=== PATIENT | female | born 1950 | race Caucasian/White ===

== ENCOUNTER → 2017-05-26 14:02 | Outpatient (CLI) | payer MEDICARE, OTHER, SELFPAY ==
[2017-05-30 20:06] LABS: Clam 0.16 kU/L (Class 0/I); Codfish <0.10 kU/L (Class 0); Corn 0.12 kU/L (Class 0/I); Egg, White 0.13 kU/L (Class 0/I); Milk (Cow) 0.27 kU/L (Class 0/I); Peanut <0.10 kU/L (Class 0); SCALLOP 0.19 kU/L (Class 0/I); Soybean <0.10 kU/L (Class 0); Walnut, (Food) <0.10 kU/L (Class 0); Wheat 0.22 kU/L (Class 0/I)
[2017-05-31 06:22] LABS: SESAME SEED 0.11 kU/L (Class 0/I)
== END ==
PROVIDERS: Family Provider Family Medicine; PCP Family Medicine; Visit Provider Otolaryngology
DX: T78.40XA Allergy, unspecified, initial encounter (principal)
CPT/HCPCS: 36415; 86003

== ENCOUNTER 2018-04-28 09:00 | Outpatient (RCR) | payer MEDICARE, OTHER, SELFPAY ==
--- NOTE | 2018-03-17 14:25 | HP.PTEVAL_ITS ---
Patient's Visit Information BENJAMIN WRIGHT is a 67 year old F referred to Physical Therapy by Daniel Guerrero MD with a diagnosis of R AMI. Date of Evaluation: 03/17/18 Physical Therapist: Justo Arcos PT, ATC - Visit Plan Frequency: 2-3x /Week Duration: 4-6 Weeks Plan: R LE strengthening, core stab ex's, balance and proprio, nustep, and HEP - Subjective Findings: DOS: 02/16/18. Pt reports having a chronic Hx of R hip pain. Pt reports she thought it was her L/S until she found out it was her R hip causing pain. Pt reports she went home the following day, and had home health care for a couple weeks afterwards. Pt had an anterior approach for her hip replacement. Pt reports she is getting better overall, but reports her R knee is getting more sore. Pt reports she had no knee pain prior to surgery. Pt reports sleep difficulty secondary to R knee pain. Pt also notes tingling and numbness in her R LE from the knee down to mid anterior sánchez. 0/10 pain at rest, 2/10 pain at worst (If I move wrong) - Pain R AMI Pain Intensity (Out of 10): 0 Pain Intensity Range: 2 - Objective Neuro: B LE sensation is WNL to light touch. B patellar reflex= 2/3. MMT: R hip is 4-/5 throughout and painful with all testing. L LE 5/5 throughout. Gait: Pt ambulates with a limp of the R LE. Pt was able to ambulate greater than 1000 feet with use of standard cane. - Goals Goal 1:: Decrease R hip pain x 50% to aid with sleep Goal Time Frame: 4-6 Weeks Goal 2:: Increase R LE strength x 1 grade to aid with RTW Goal Time Frame: 4-6 Weeks Goal 3:: Pt will be able to ambulate 1000' without an AD to aid with community ambulation Goal Time Frame: 4-6 Weeks Goal 4:: I with HEP Goal Time Frame: 4-6 Weeks - Rehabilitation Potential Physical Therapy Diagnosis: R hip pain, weakness, and difficulty with ambulation secondary to R AMI Rehabilitation Potential: Good - Anticipated Interventions Patient/Client Instruction: Educate patient on: Condition, Plan of Care For the Purpose of:: To decrease pain, To increase ROM, To improve muscle performance and motor function Therapeutic Exercise to Include: Strength training, Endurance training, Balance training, Postural training, Dynamic Lumbar Stabilization For the Purpose of:: To decrease pain, To increase ROM, To improve muscle performance and motor function Cryotherapy (ice pack, ice massage): Yes For the Purpose of:: To decrease pain Thank you for the opportunity to evaluate your patient. For Medicare and Medicare HMO plans, please review the plan of care and approve it. It will need to be FAXED BACK to us at [phone] for Medicare purposes. For Medicare only, by signing this I certify the plan of care. Please let me know if there are questions or concerns regarding this plan of care. Physician Signature: Date:__
--- NOTE | 2018-04-28 09:42 | HP.PTDCSUM ---
HP - PT D/C Summary It has been my pleasure to treat BENJAMIN WRIGHT under orders from Daniel Guerrero MD, for the diagnosis of R AMI for a total of 12 visit(s). Discharge Date: Please see the following information for a summary of their discharge status. - Subjective Subjective: No pain just stiffness - Pain R AMI Pain Intensity (Out of 10): 0 R knee Pain Intensity (Out of 10): 0 - Overall Improvement % Improvement: 90 - Objective Objective/Function: R hip strength 5/5. No pain this date. Pt can ambulate greater than 1000 feet without difficulty. I with HEP. Rx goals achieved - Goals Goal 1:: Decrease R hip pain x 50% to aid with sleep Goal Progress: Goal Met Goal 2:: Increase R LE strength x 1 grade to aid with RTW Goal Progress: Goal Met Goal 3:: Pt will be able to ambulate 1000' without an AD to aid with community ambulation Goal Progress: Goal Met Goal 4:: I with HEP Goal Progress: Goal Met - Plan Plan: Discharge - D/C Information If there are questions or concerns regarding this patient's physical therapy, please feel free to call me at [phone]. Thank you for the referral of this patient. Sincerely, Justo Arcos, PT, ATC
== END 2018-04-28 19:00 | disposition home or self-care (01) ==
LOC: PT 09:00
PROVIDERS: Family Provider Family Medicine; PCP Family Medicine
DX: M16.11 Unilateral primary osteoarthritis, right hip (principal)
CPT/HCPCS: 97110; 97161; 97530

== ENCOUNTER 2019-02-22 10:14 | Observation (INO) | payer MEDICARE, OTHER, SELFPAY ==
[2019-02-22] VITALS (10 sets, daily range): BP systolic 122–157; BP diastolic 64–89; PULSE 82–99; RESP 14–18; TEMP 36.2–37; O2SAT 94–100; BMI 27.4
--- NOTE | 2019-02-22 | VUL_PTH ---
PATIENT: BENJAMIN WRIGHT LOC: MS2 U#:[id number] AGE/SX: 68/F ROOM: MS213 RE02/22/[address]: Dr. Clau Patel MD : [id number] BED: 1 DIS: 02/23/2019 SPEC #: [id number] RECD: 02/22/19 13:19 STATUS: CELESTE RETiffany #: [id number] LINO: 02/22/19 00:[address]: Clau Patel DEPT: SURGICAL PATHOLOGY RECD BY: Matt Vivas ENTERED: 02/22/19 13:19 SP TYPE: VULVA BX OTHR DR: Dr. 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 AM:wilian 02/23/19 MICROSCOPIC DESCRIPTION Slides are reviewed. GROSS DESCRIPTION Received is one container labeled with the patient name and designated vulvar biopsy. The specimen consists of two irregular fragments of light rowan soft tissue that in aggregate measure 0.6 x 0.6 x 0.2 cm. The specimen is totally submitted in one cassette. / AM:wilian 02/22/19 TC: 3 CPT: 55882
--- NOTE | 2019-02-22 05:23 | EKG12_ITS ---
Test Reason : PRE OP Blood Pressure : / mmHG Vent. Rate : 078 BPM Atrial Rate : 078 BPM P-R Int : 150 ms QRS Dur : 086 ms QT Int : 396 ms P-R-T Axes : 035 029 048 degrees QTc Int : 451 ms Normal sinus rhythm Normal ECG When compared with ECG of 16-MAY-2016 05:04, No significant change was found Confirmed by YURY BLAND, JESSEE ([id number]), film or videotape editor SWATI AGUILAR ([id number]) on 02/23/2019 12:02:02 PM Referred By: Clau Patel Confirmed By:JESSEE COTTON MD
[2019-02-22] MEDS: Lactated Ringers 1,000 ML 100 ML IV (06:05)
[2019-02-22] MEDS: Cefazolin 2 GM in 0.9% Normal Saline 100 ML IV (07:41)
[2019-02-22] MEDS: Lubricating Jelly 60 GM Tube 30 GM TOPICAL (07:48)
[2019-02-22] MEDS: Estrogens,Conj. 1 Tube 1 DOSE (10:05)
--- NOTE | 2019-02-22 10:29 | PCM.OPRPT ---
Problem List (1) Cystocele with rectocele Status: Acute (2) Vaginal vault prolapse after hysterectomy Status: Acute (3) Stress incontinence Status: Acute Report of Operation Date of Procedure: 02/22/19 Pre-Operative Diagnosis: Cystocele, rectocele, vaginal vault prolapse and stress incontinence Post-Operative Diagnosis: Same and lichen sclerosis Surgery/Procedure Performed:: Anterior repair with dermis, posterior repair with dermis, sacrospinous ligament fixation bilaterally, mid urethral sling, cystoscopy, vulvar biopsy x2 Type of Anesthesia:: General Special Medications: Ancef Specimen's removed: vulvar biopsy times 2 Estimated Blood Loss (mL): 50cc Description of Procedure: The patient is a 68-year-old female with pelvic organ prolapse who presented to the office in search of surgical intervention. She was evaluated with urodynamics and cystoscopy. The risk benefits and alternatives were discussed, and informed consent was obtained. The patient was taken to the operating room and placed on the operating room table. Anesthesia monitored the head, neck, airway, IV access and vital signs throughout the case. Once anesthesia was administered, the patient was placed in dorsal lithotomy position and was prepped and draped in usual sterile fashion. A 16 Georgian Flannery catheter was inserted and the bladder was drained. She was placed in Trendelenburg. The anterior vaginal wall was injected submucosally with 1% lidocaine with epinephrine. A midline vertical incision approximately 2 cm in length was made. Sharp and blunt dissection was then performed bilaterally until the ischial spines were palpable and the sacrospinous ligaments were identified and cleared from surrounding tissues bilaterally. Using the Capio suturing device, Ethibond sutures were passed through each sacrospinous ligament, through dermis and then full-thickness through the vaginal wall at the vault bilaterally. The dermis was then tacked at the area of the bladder neck using 2-0 Vicryl. Interrupted sutures were also placed laterally. At this time the midline incision was closed using running interlocking 2-0 Vicryl. The Ethibond sutures were then tied down. At this time the posterior defect was repaired in similar fashion. The submucosa was injected with 1% lidocaine with epinephrine. An midline incision was made and sharp and blunt dissection was performed until the rectovaginal fascia was identified. There is not enough fascia to bring across the defect and a small piece of dermis was used to suture across the defect with each side being attached to the rectovaginal fascia. The perineal body was reconstructed using interrupted 2-0 Vicryl in several layers. The posterior vaginal mucosa was then closed in running interlocking fashion. The mid urethra was injected submucosally and a midline incision was made. Sharp and blunt dissection was performed on either side of the urethra to avoid entry into the urethra, the bladder and the vaginal mucosa. The sling was inserted using the trochars. It was tensioned to be placed lightly against the urethra and was flat. The tensioning suture was cut in the midline incision was closed using running interlocking 2-0 Vicryl. A cystourethroscopy was performed revealing no entry into the urinary bladder or the urethra with any foreign material including suture or mesh. There were no mucosal abnormalities identified. A small ureteral jet was observed from the left ureter after it was intubated with a 0.035 Glidewire. The right ureter was also intubated with a wire and a jet was observed. At this time the vagina was packed using Premarin cream and vaginal packing. The Flannery catheter was reinserted. A 5 mm punch biopsy was performed on 2 areas of the vulva one on the patient's right side in the periclitoral area and one on the left lateral aspect of the vulva. 3-0 chromic was used to close these biopsy sites and for hemostasis. The patient was awakened and taken to the recovery room in good condition. There were no complications during this procedure. Counts were correct. Grafts/Implants Used: Dermis (Bledsoe), Midurethral sling (Altis) - Complications none - Admit VTE Documentation VTE Present on Admission: Yes VTE Mechan Device Prophylaxis: SCD's VTE Pharm Prophylaxis ordered?: Yes
[2019-02-22] MEDS: Dextrose 5%-Lactated Ringers 1,000 ML 100 ML IV ×2 (12:17→21:30)
[2019-02-22] MEDS: HYDROcodone Bitartrate/Apap 5/325 Tablet PO ×2 (12:20→19:19)
--- NOTE | 2019-02-22 12:58 | DCINST_ITS ---
Discharge Diet: No Restrictions Discharge Activity: May Not Drive - for 2 weeks, May Shower Additional Activity Instructions:: no lifting over 5 pounds, no strenuous activity, no exercising, no tub bathing, no intercourse, no swimming Call your doctor if your incision/area has: Continuous Slow Oozing, Sudden Increased Bleeding, Foul Smelling Discharge Call your doctor if you observe: Fever of 101 or Higher, Inability to urinate, Inability to have a bowel movement, Calf discomfort, Uncontrolled pain Allergies/Adverse Reactions: Allergies adhesive Allergy (Verified 02/22/19 05:51) Other 1ST DEGREE BURN amoxicillin Allergy (Verified 02/22/19 05:51) Hives [employer] AT [facility] SAID OK TO TAKE CEFAZOLIN, azithromycin Allergy (Verified 02/22/19 05:51) Hives iodine Allergy (Verified 02/22/19 05:51) Swelling levofloxacin [From Levaquin] Allergy (Verified 02/22/19 05:51) Hives shellfish derived Allergy (Verified 02/22/19 05:51) Swelling sulfamethoxazole [From Bactrim] Allergy (Verified 02/22/19 05:51) Hives trimethoprim [From Bactrim] Allergy (Verified 02/22/19 05:51) Hives Medications to take at Discharge Calcium Carbonate [Calcium] 600 mg PO BID 05/15/16 Multivitamins,Ther W-Minerals [Multivitamin With Minerals] 1 tablet PO DAILY 05/15/16 [place]-3 Fatty Acids/Fish Oil [Fish Oil 1,000 mg Capsule] 1 each PO DAILY 05/15/16 Simvastatin [Zocor] 20 mg PO QHS 05/15/16 Mag Hydrox/Al Hydrox/Simeth [Mylanta II] 15 ml PO Q4H PRN PRN #1 bottle 05/16/16 Aspirin E.C. [Ecotrin] 81 mg PO DAILY@0800 02/15/19 Docusate Sodium [Colace] 100 mg PO BID 02/15/19 Estradiol [Estrace Vaginal Cream] 1 gm VAGINAL MOWEFR 02/15/19 Pantoprazole Sodium [Protonix] 20 mg PO DAILY 02/15/19 Primary Care Physician: Jaleel Childers MD [Primary Care Provider] - Test Results: Test results from this visit will be discussed in further detail at your follow- up appointment, if applicable. Please Follow Up With: Clau Patel MD When: call office for appt Proposed Discharge Date: 02/23/19
--- NOTE | 2019-02-22 16:20 | NURSING ---
PATIENT WALKED 2 LAPS IN HERRERA WITH THIS RN. NO COMPLAINTS
[2019-02-22] MEDS: Cefazolin 1 GM/50 ML BAG IV ×2 (17:12→23:46)
[2019-02-22] MEDS: Docusate Sodium 100 MG Capsule 200 MG PO (21:31)
[2019-02-23 02:09] VITALS: BP 124/70; PULSE 85; RESP 18; TEMP 37.6; O2SAT 96
[2019-02-23] MEDS: HYDROcodone Bitartrate/Apap 5/325 Tablet PO ×2 (02:18→08:29)
[2019-02-23] MEDS: Enoxaparin 40 MG/0.4 ML Syringe SC (06:00)
[2019-02-23] MEDS: Dextrose 5%-Lactated Ringers 1,000 ML 100 ML IV (06:42)
--- NOTE | 2019-02-23 08:16 | PCM.PN.BLA ---
Progress Note Patient is sitting up in bed eating. No nausea or vomiting, ambulating. Pain is controlled. T-max 99.6 vital signs are stable Abdomen soft nontender nondistended Flannery draining clear yellow urine General packing and Flannery catheter removed without difficulty Assessment and plan postop day #1 anterior and posterior repair, sacrospinous ligament fixation with dermis, sling and cystoscopy, vulvar biopsy Trial of void today Home today
[2019-02-23 08:23] VITALS: BP 136/65; PULSE 88; RESP 18; TEMP 36.9; O2SAT 97
[2019-02-23] MEDS: Docusate Sodium 100 MG Capsule 200 MG PO (08:31)
[2019-02-23] MEDS: Pantoprazole Sodium 20 MG Tablet PO (08:31)
[2019-02-23 10:42] VITALS: BP 128/68; PULSE 85; RESP 18; TEMP 37.2; O2SAT 95
== END 2019-02-23 10:38 | disposition home or self-care (01) ==
LOC: SDC 10:22 → MS2 02-23 07:11
PROVIDERS: Admitting Provider Urology; Family Provider Family Medicine; PCP Family Medicine; Referring Provider Urology; Visit Provider Urology
PROC: (CPT 57260; principal; 2019-02-22 07:15)
DX: N99.3 Prolapse of vaginal vault after hysterectomy (principal); N39.3 Stress incontinence (female) (male); L28.0 Lichen simplex chronicus; E78.00 Pure hypercholesterolemia, unspecified; Z79.899 Other long term (current) drug therapy; Z79.82 Long term (current) use of aspirin
CPT/HCPCS: 11104; 11105; 57260; 57282; 57288; 88305; 93005; 96361; 96365; 96366; 96372; 99218; J7120; C1758; G0378; G0379; J2405

== ENCOUNTER → 2022-04-09 | Outpatient (CLI) | payer MEDICARE, OTHER, SELFPAY ==
--- NOTE | 2022-04-09 12:14 | RAD_ITS ---
STUDY: X-RAY CHEST REASON FOR EXAM: Female, 71 years old. Chest pain, hypertension TECHNIQUE: PA and lateral views of the chest. COMPARISON: 2016 FINDINGS: The lungs are clear and expanded. There is no demonstrated pleural abnormality. Normal size heart. Normal mediastinum and ministerio. Normal visualized pulmonary arteries. Normal visualized aortic arch and descending thoracic aorta. Normal visualized thoracic spine. Normal visualized ribs, clavicles, and shoulders. There is no demonstrated abnormality of the visualized soft tissue structures of the upper abdomen. RAD/Chest PA and Lateral IMPRESSION: Normal x-ray examination of the chest. Electronically Signed: Jeremiah Davis MD at 13:52 EST ,
[2022-04-09 13:12] LABS: AST(SGOT) 40 U/L (15-37); Alanine Aminotransfer ALT/SGPT 55 U/L (13-56); Alkaline Phosphatase 86 U/L (45-117); Bilirubin, Direct 0.19 mg/dL (0.00-0.30); Cholesterol 164 mg/dL (200); Globulin 3.7 g/dL (2.2-4.2); High Density Lipoprotein 51 mg/dL; Protein, Total 7.7 g/dL (6.4-8.2); Triglycerides 214 mg/dL; Very Low Density Lipoprotein 43 mg/dL (5-40)
== END | disposition home or self-care (01) ==
PROVIDERS: PCP Family Medicine; Referring Provider Internal Medicine Cardiovascular Disease; Visit Provider Internal Medicine Cardiovascular Disease
DX: E78.5 Hyperlipidemia, unspecified (principal); I10 Essential (primary) hypertension; R07.9 Chest pain, unspecified
CPT/HCPCS: 36415; 71046; 80061; 80076

== ENCOUNTER → 2022-04-21 | Outpatient (CLI) | payer MEDICARE, OTHER, SELFPAY ==
--- NOTE | 2022-04-21 10:36 | STEWCON_ITS ---
Reason For Study: HTN; Chest Pain Stress Results Protocol: Abe Protocol WITH DEFINITY Maximum Predicted HR: 150 bpm Target HR: 128 bpm % Maximum Predicted HR: 100 % DurationHeart Rate Stage (mm:ss) (bpm) BP Comment Baseline 78 116/80No Chest Pain; 4 ML Diluted Definity Abe Protocol Stage I 3:00 106 122/78No Chest Pain Abe Protocol Stage II 3:00 122 144/78No Chest Pain Abe Protocol Stage III 3:00 142 148/70No Chest Pain; Mild Dyspnea Abe Protocol Stage IV 0:30 150 / No Chest Pain; Moderate Dyspnea Recovery 96 128/80No Chest Pain Stress Duration: 9:30 mm:ss Maximum Stress HR: 150 bpm METS: 11 Baseline Echocardiogram Findings No pericardial effusion. Stress Echo Wall motion Data Resting WM Intermediate WM Stress WM ECHO/Stress Test Echo W/Contrast Interpretation Summary Exercise stress echocardiogram. 71-year-old lady with a history of hypertension and chest pain. Resting EKG demonstrates normal sinus rhythm with a rate of 78 bpm normal inter vals are noted resting blood pressure is 116/80 mmHg. The patient exercised according to the r egular Abe protocol for total duration of 9 minutes and 30 seconds patient completed 30 seconds int o stage IV of the Abe protocol. The maximum heart rate attained 162 bpm which was 108% of max i mpacted heart rate the maximum workload was 11.6 metabolic equivalents. At rest there were no ST o r T wave changes noted to suggest ischemia and at peak exercise upsloping ST changes were noted with did not meet the criteria for ischemia. No clinical angina was noted. Moderate dyspnea was noted at peak exercise. The peak blood pressure was 178/60 mmHg. Rate-pressure product was 21,000. Stress echocardiogram. Stress echocardiographic images were obtained with and w ithout Definity enhancement the resting ejection fraction was 55% with a peak ejection fraction of 65% with no wall motion abnormalities noted and appropriate contractility noted. Conclusion: Stress echo with no evidence of ischemia at a high workload Ordering Physician: Ramesh Yoon Referring Physician: Ramesh Yoon Performed By: Gracie Madison, DARIA
== END | disposition home or self-care (01) ==
LOC: CVS 10:35
PROVIDERS: PCP Family Medicine; Visit Provider Internal Medicine Cardiovascular Disease
DX: R07.9 Chest pain, unspecified (principal); I10 Essential (primary) hypertension
CPT/HCPCS: 93017; 93350; Q9957; A4216; C8928

== ENCOUNTER 2024-05-19 08:00 | Outpatient (RCR) | payer MEDICARE, OTHER, SELFPAY ==
--- NOTE | 2024-05-02 10:06 | HP.PTEVAL ---
Patient's Visit Information Visit Information Visit Information: BENJAMIN WRIGHT is a 73 year old F referred to Physical Therapy by Karan Bourne MD with a diagnosis of R hip flexor tendinitis and L hip OA. Date of Evaluation: 04/22/24 Physical Therapist: Geraldo Forde DPT Visit Plan Frequency: 2x /Week Duration: 6 Weeks Plan: 1) hip flexor DFM to R hip, R hip flexor stretching (gentle) 2) strengthening of BLEs focus on hip and core strength Subjective Subjective: Pt. is here today for her initial evaluation with diagnosis R hip flexor tendinitis and L hip OA. Pt. had a R AMI ~4 years ago, she was doing well, but more recently his has been having anterior hip pain. She is also having L hip pain as well. Pt. denies N/T in either LE. Pt. reports being hard to lift her R leg up in bed and pick leg up to get in car. Pt. reports L hip is just generally sore. Pt. is sleeping okay, but moving is the hardest. Pt. is hopeful to reduce her symptoms in order to get back to all recreational and household work without issues. Pain R anterior hip: Pain Intensity (Out of 10): 3 Pain Intensity Range: 2 and 5 L groin region: Pain Intensity (Out of 10): 2 Pain Intensity Range: 1 and 6 Objective Objective: POSTURE: Pt. has fairly normal posture in stance. PALPATION: Pt. has a lot of tenderness at R hip flexor, and TFL. NEURO: Pt. has normal sensation in BLE. Normal DTR of bLEs. Pt. is able to rise on heels and toes without issues. ROM: L hip: flexion 95deg, abd 45get, ext 8deg. ER 45deg, IR 20deg. R hip: flexion 90deg, abd 45deg, ER/IR did not test MMT: R hip: flexion 3/5 increase in pain, abd 4/5, ext 4/5. L hip: flexion 4/5, abd 4/5, ext 4/5. gait: Pt. ambulates without AD. Pt. reports increased pain with R hip flexion, increased L hip pain with in end of stnace phase. STAIR: Difficulty with raising R hip flexion, rest was normal. Balance/Special Test Scores Lower Extremity Functional Score: 67 Goals Goal 1:: LTG: Pt. to be I with HEP. Goal Time Frame: 4-6 Weeks Goal 2:: STG: Pt. to sleep throughout the night without increase in symptoms. Goal Time Frame: 2 Weeks Goal 3:: STG: Pt. ambulate with increase in B hip symptoms. Goal Time Frame: 2-4 Weeks Goal 4:: LTG: Pt. to have 5/5 strength throughout BLEs. Goal Time Frame: 4-6 Weeks Goal 5:: LTG: Pt. to be able to complete SLR with R hip without increase in symptoms. Goal Time Frame: 4-6 Weeks Rehabilitation Potential Physical Therapy Diagnosis: Pt. has signs and symptoms consistent with R hip flexor tendinitis and L hip OA. Pt. has marked increased pain with R hip flexion actively. Pt. has marked hypomobility in her L hip. Pt would benefit from PT to address the above limitations progressing back to all recreational activities. Rehabilitation Potential: Good Anticipated Interventions Patient/Client Instruction: Educate patient on: Condition, Plan of Care, Risk Factors and Benefits of Fitness Program For the Purpose of:: To foster healthy habits, To improve decision making, To facilitate caregiver knowledge, To improve self management, To prevent re-injury and To improve ability to perform tasks related to life management Therapeutic Exercise to Include: Strength training, Power training, Endurance training, Body mechanics, Passive ROM, Active ROM and Dynamic Lumbar Stabilization For the Purpose of:: To decrease pain, To increase ROM, To improve nutrient delivery to tissue, To increase oxygenation perfusion, To improve muscle performance and motor function, To improve ability to perform ADL's, To increase tolerance to activity/condition/position, To improve performance and independence with ADL's, To improve gait and locomotor functions, To improve health of tissue and To decrease soft tissue restriction Comment: DFM, IASTIM For the Purpose of:: To decrease pain, To increase ROM, To improve nutrient delivery to tissue, To increase oxygenation perfusion and To improve muscle performance and motor function Text: Thank you for the opportunity to evaluate your patient. For Medicare and Medicare HMO plans, please review the plan of care and approve it. It will need to be FAXED BACK to us at [phone] for Medicare purposes. For Medicare only, by signing this I certify the plan of care. Please let me know if there are questions or concerns regarding this plan of care. Physician Signature: Date:
== END 2024-05-19 19:00 | disposition home or self-care (01) ==
LOC: PT 08:00
PROVIDERS: PCP Family Medicine; Referring Provider Orthopaedic Surgery; Visit Provider Orthopaedic Surgery
DX: M16.12 Unilateral primary osteoarthritis, left hip (principal); M76.891 Other specified enthesopathies of right lower limb, excluding foot
CPT/HCPCS: 97110; 97140; 97161

== ENCOUNTER → 2024-08-18 | Outpatient (CLI) | payer MEDICARE, OTHER, SELFPAY ==
[2024-08-18 12:16] LABS: Cholesterol 129 mg/dL (<=200); High Density Lipoprotein 35 mg/dL; Low Density Lipoprotein Calc. 35 mg/dL; Triglycerides 295 mg/dL; Very Low Density Lipoprotein 59 mg/dL (5-40)
[2024-08-18 12:35] LABS: ALB/GLOB Ratio 1.6 RATIO (0.9-2.4); AST(SGOT) 41 U/L (<=31); Alanine Aminotransfer ALT/SGPT 29 U/L (<=34); Albumin, Serum 4.2 g/dL (3.4-4.8); Alkaline Phosphatase 90 U/L (35-104); Anion Gap 12 (5-15); BUN 13 mg/dL (4-19); Calcium,Total 9.8 mg/dL (7.6-11.0); Chloride 103 mmol/L (98-108); Creatinine, Serum 0.94 mg/dL (0.70-1.20); EST Glomerular Filtration Rate 64 (>60); Globulin 2.7 g/dL (2.2-4.2); Glucose 80 mg/dL (70-99); Potassium 4.8 mmol/L (3.3-5.1); Protein, Total 6.9 g/dL (5.9-8.4); Sodium Level 139 mmol/L (133-145); Total Bilirubin 0.53 mg/dL (0.00-1.30)
== END | disposition home or self-care (01) ==
LOC: LAB 11:03
PROVIDERS: PCP Family Medicine; Referring Provider Physician Assistant Medical; Visit Provider Physician Assistant Medical
DX: I10 Essential (primary) hypertension (principal); E78.5 Hyperlipidemia, unspecified
CPT/HCPCS: 36415; 80053; 80061